=== PATIENT | female | born 1955 ===

== ENCOUNTER 2022-06-05 15:38 | Emergency (ER) | payer MEDICARE, OTHER ==
[~2022-06-05] VITALS: Ht 167.6 cm; Wt 81.7 kg
[~2022-06-05 15:38] MED LIST: Multiple Vitam1 EAC1 PO; Synthroid112 MCG PO
== END 2022-06-05 17:11 | disposition left against medical advice (07) ==
LOC: ER 15:38
DX: R09.89 Other specified symptoms and signs involving the circulatory and respiratory systems (principal); Z53.21 Procedure and treatment not carried out due to patient leaving prior to being seen by health care provider